=== PATIENT | male | born 2000 | race American Indian/Alaskan Native ===

== ENCOUNTER 2022-07-22 11:02 | Emergency (ER) | payer SELFPAY ==
[2022-07-22 11:19] VITALS: BP 160/102
--- NOTE | 2022-07-22 11:37 | Emergency Department Report ---
- General Chief complaint: Skin/Abscess/Foreign Body Stated complaint: LUMP ON CHEST Time Seen by Provider: 07/22/22 11:31 Source: patient Mode of arrival: Ambulatory Limitations: No Limitations - History of Present Illness Initial comments: 21-year-old black male with no past medical history resents to the emergency department for evaluation of lump under left arm. He states that he noticed a lump under his left arm to his axillary area yesterday. He denies pain, drainage, or fever. MD complaint: other (Order left axillary area) -: Sudden, days(s) (1) Tetanus Up to Date: unsure Severity scale (0 -10): 0 Associated symptoms: denies other symptoms Treatments Prior to Arrival: none - Related Data Allergies Allergy/AdvReac Type Severity Reaction Status Date / Time No Known Allergies Allergy Unverified 07/22/22 11:19 Abscess Boil HPI - HPI Chief Complaint: Skin/Abscess/Foreign Body Stated Complaint: LUMP ON CHEST Time Seen by Provider: 07/22/22 11:31 Allergies/Adverse Reactions: Allergies Allergy/AdvReac Type Severity Reaction Status Date / Time No Known Allergies Allergy Unverified 07/22/22 11:19 ED Review of Systems ROS: Stated complaint: LUMP ON CHEST Other details as noted in HPI Comment: All other systems reviewed and negative Constitutional: denies: chills, fever Respiratory: denies: shortness of breath Cardiovascular: denies: chest pain, palpitations Gastrointestinal: denies: abdominal pain, nausea, vomiting Neurological: denies: headache, weakness ED Past Medical Hx - Past Medical History Previous Medical History?: No - Surgical History Past Surgical History?: No ED Physical Exam - General Limitations: No Limitations General appearance: alert, in no apparent distress - Head Head exam: Present: atraumatic, normocephalic - Eye Eye exam: Present: normal appearance. Absent: conjunctival injection - Neck Neck exam: Present: normal inspection - Respiratory Respiratory exam: Absent: respiratory distress - Cardiovascular Cardiovascular Exam: Present: regular rate - GI/Abdominal GI/Abdominal exam: Absent: distended, tenderness - Expanded Upper Extremity Exam Left General: Present: normal inspection (No lump noted under left axillary area.) Shoulder Exam: Present: normal inspection Upper Arm exam: Present: normal inspection Vascular: Present: normal capillary refill, radial pulse. Absent: vascular compromise, Pallo - Back Exam Back exam: Present: normal inspection - Neurological Exam Neurological exam: Present: alert, oriented X3 - Psychiatric Psychiatric exam: Present: normal affect, normal mood - Skin Skin exam: Present: warm, dry, intact, normal color ED Course Vital Signs 07/22/22 11:16 Temperature 98.6 F Pulse Rate 81 Respiratory 18 Rate Blood Pressure 160/102 [Left] O2 Sat by Pulse 99 Oximetry ED Medical Decision Making - Medical Decision Making 21-year-old black male with no past medical history resents to the emergency department for evaluation of lump under left arm. He states that he noticed a lump under his left arm to his axillary area yesterday. He denies pain, drainage, or fever. Physical exam unremarkable. Patient discharged home and advised to follow-up with primary care provider for further evaluation and management or return to the emergency department as needed. He verbalizes understanding of and agreement with plan of care. Critical care attestation.: If time is entered above; I have spent that time in minutes in the direct care of this critically ill patient, excluding procedure time. ED Disposition Clinical Impression: Lump in armpit Qualifiers: Laterality: left Qualified Code(s): R22.32 - Localized swelling, mass and lump, left upper limb Disposition: 01 HOME / SELF CARE / HOMELESS Is pt being admited?: No Does the pt Need Aspirin: No Condition: Stable Additional Instructions: Follow-up with your primary care provider for further evaluation and management. Return to the emergency department as needed. Referrals: MEREDITH DE LA CRUZ MD [Staff Physician] - 3-5 Days Forms: Work/School Release Form(ED) Time of Disposition: 11:42
== END 2022-07-22 13:01 | disposition home or self-care (01) ==
LOC: ED 11:02
DX: R22.32 Localized swelling, mass and lump, left upper limb (principal)
CPT/HCPCS: 99282